=== PATIENT | male | born 1955 | race Caucasian/White ===

== ENCOUNTER → 2021-09-26 | Outpatient (CLI) | payer MEDICARE, OTHER ==
[~2021-09-26] MED LIST: GADOTERATE 0.5 MMOL/ML (CLARISCAN) 20 ML VIAL IV ONE
--- NOTE | 2021-09-26 14:07 | Diagnostic Imaging Report ---
Indication: Pre-MRI screening. Time of Exam: 2:09 PM 2 views of the orbits were obtained. No radiopaque orbital foreign body is identified. Impression: No radiopaque orbital foreign bodies detected. Dictated by: Dictated on workstation # [id number]
--- NOTE | 2021-09-26 14:45 | Diagnostic Imaging Report ---
Clinical indication: Patient with vertigo. Exam: MRI of the brain performed without and with 9 cc of IV contrast. Sequences include axial DWI, ADC map, axial gradient echo, axial FLAIR, axial T1, axial T2, axial T1 post IV contrast whole brain, coronal T1 fat-sat post IV contrast whole brain, and sagittal T1 fat-sat post IV contrast whole brain. Comparison: None. Findings: There is no evidence of acute cerebral infarct, intracranial hemorrhage or gross mass effect. There is no abnormal IV contrast enhancement. The brain parenchymal volume appears appropriate for patient's age. There is a small prominent appearing vascular cyst in left basal ganglia region. There is normal marley-white matter distinction. There is no significant midline shift or herniation. The [place] vascular structures show no gross abnormality as visualized. Partially empty sella turcica noted with the pituitary gland measuring just greater than 2 mm in craniocaudal dimension. There is no evidence of hydrocephalus. The basal cisterns are unremarkable. The skull, extracranial soft tissue, and orbits are unremarkable. There is mild mucosal thickening involving left maxillary sinus and minimal mucosal thickening involving the frontal sinus, ethmoid sinus, sphenoid sinus and right maxillary sinus. Temporal bones show no significant abnormality. Impression: 1: There is no evidence of acute intracranial process. There is no abnormal IV contrast enhancement. 2: Partial empty sella turcica is noted which is nonspecific. There is no measurable mass seen. 3: Mild paranasal sinus disease. Otherwise unremarkable MRI of the brain. Dictated by: Dictated on workstation # [id number]
== END ==
LOC: RAD 13:15
PROVIDERS: ATTEND Family Medicine
DX: Z01.812 Encounter for preprocedural laboratory examination (principal); J32.9 Chronic sinusitis, unspecified
CPT/HCPCS: 70553